=== PATIENT | female | born 1995 | race Caucasian/White ===

== ENCOUNTER 2017-08-03 22:51 | Inpatient (IN) | payer OTHER ==
[2017-08-03] MEDS: morphine 2 MG INJ IV (23:41)
[2017-08-04] MEDS ORDERED: ONDANSETRON 4 MG INJ IV ×3 (00:30→14:30)
[2017-08-04] MEDS: PIPER-TAZO 3.375 GM IV (PMX) 100 ML IVPB ×3 (00:44→18:00)
[2017-08-04] MEDS: DEXTROSE 5%-0.45% NACL 1,000 ML IV ×2 (00:44→10:30)
[2017-08-04 01:06] LABS: ADD MAN DIFF? NO
[2017-08-04 01:15] LABS: WHITE BLOOD COUNT 9.6 10^3/ul (4.8-10.8)
[2017-08-04 01:15] LABS: BASOPHIL # 0.1 10^3/ul (0.0-0.1); BASOPHILS % 0.5 % (0.0-2.0); EOSINOPHILS # 0.3 10^3/ul (0.0-0.5); EOSINOPHILS % 3.5 % (0.0-7.0); HEMATOCRIT 34.2 % (37.0-47.0); HEMOGLOBIN 11.1 g/dl (12.0-16.0); LYMPHOCYTES # 2.6 10^3/ul (0.8-2.9); LYMPHOCYTES % 27.4 % (18.0-55.0); MEAN CORPUSCULAR HEMOGLOBIN 27.8 pg (29.0-33.0); MEAN CORPUSCULAR HGB CONC 32.5 g/dl (32.0-37.0); MEAN CORPUSCULAR VOLUME 85.7 fl (72.0-104.0); MEAN PLATELET VOLUME 11.4 fl (7.4-10.4); MONOCYTE # 0.6 10^3/ul (0.3-0.9); MONOCYTES % 6.2 % (0.0-13.0); NEUTROPHIL # 5.9 10^3/ul (1.6-7.5); NEUTROPHILS % 62.2 % (30.0-74.0); PLATELET COUNT 255 10^3/UL (140-415); RED BLOOD COUNT 3.99 10^6/ul (4.20-5.40); RED CELL DISTRIBUTION WIDTH 14.8 % (11.5-14.5)
[2017-08-04 01:30] LABS: ALANINE AMINOTRANSFERASE 184 IU/L (13-69); ALBUMIN 4.4 g/dl (3.3-4.9); ALBUMIN/GLOBULIN RATIO 1.46; ALKALINE PHOSPHATASE 124 IU/L (42-121); ANION GAP 18 (8-16); ASPARTATE AMINO TRANSFERASE 97 IU/L (15-46); BILIRUBIN,INDIRECT 0.3 mg/dl (0-1.1); BILIRUBIN,TOTAL 0.3 mg/dl (0.2-1.3); BLOOD UREA NITROGEN 13 mg/dl (7-20); CALCIUM 9.3 mg/dl (8.4-10.2); CARBON DIOXIDE 23 mmol/L (21-31); CHLORIDE 104 mmol/L (97-110); CREATININE 0.65 mg/dl (0.44-1.00); GLUCOSE 81 mg/dl (70-220); MAGNESIUM 1.9 mg/dl (1.7-2.5); POTASSIUM 4.4 mmol/L (3.5-5.1); SODIUM 141 mmol/L (135-144); TOTAL PROTEIN 7.4 g/dl (6.1-8.1)
[2017-08-04] MEDS ORDERED: morphine 2 MG INJ IV (13:00)
[2017-08-04] MEDS ORDERED: ACETAMINOPHEN 325 MG TAB PO (13:00)
[2017-08-04] MEDS ORDERED: BUPIVACAINE 0.25% (MPF) 30 ML INJ (13:26)
[2017-08-04] MEDS ORDERED: SUCCINYLCHOLINE CHLORIDE 100 MG/5 ML SYG IV (13:32)
[2017-08-04] MEDS ORDERED: GLYCOPYRROLATE 0.4 MG INJ (13:32)
[2017-08-04] MEDS ORDERED: LIDOCAINE 100 MG SYRINGE (13:32)
[2017-08-04] MEDS ORDERED: PROPOFOL 20 ML (13:32)
[2017-08-04] MEDS ORDERED: NEOSTIGMINE 3 MG/3 ML SYRINGE (13:32)
[2017-08-04] MEDS ORDERED: DEXAMETHASONE 4 MG/ML 1 ML INJ (13:33)
[2017-08-04] MEDS ORDERED: ROCURONIUM 50 MG INJ (13:33)
[2017-08-04] MEDS: BUPIVACAINE 0.25% (MPF) 30 ML INJ INJ (13:43)
[2017-08-04] MEDS: LIDOCAINE 1%/EPI 30 ML INJ INJ (13:43)
[2017-08-04] MEDS ORDERED: FENTAnyl 50 MCG/ML VIAL (14:17)
[2017-08-04] MEDS: FENTAnyl 50 MCG/ML VIAL IV (14:25)
[2017-08-04] MEDS ORDERED: MEPERIDINE 25 MG INJ IV (14:30)
[2017-08-04] MEDS ORDERED: HYDROmorphONE (0.2 MG/ML) 10ML SYG IV ×3 (14:30)
[2017-08-04] MEDS ORDERED: METOCLOPRAMIDE 10 MG INJ IV (14:30)
[2017-08-04] MEDS ORDERED: hydrALAzine 20 MG INJ IV (14:30)
[2017-08-04] MEDS ORDERED: FENTAnyl 50 MCG/ML VIAL IV ×2 (14:30)
[2017-08-04] MEDS ORDERED: EPHEDrine SULFATE 50 MG/5 ML SYG IV (14:30)
[2017-08-04] MEDS ORDERED: KETOROLAC 30 MG INJ IV (14:30)
[2017-08-04] MEDS ORDERED: DIPHENHYDRAMINE 50 MG INJ IV (14:30)
[2017-08-04] MEDS: D5W-0.45 NACL + KCL 20 MEQ 1,000 ML IV ×2 (15:39→22:53)
[2017-08-04] MEDS: KETOROLAC 15 MG INJ IV ×2 (15:40→19:00)
[2017-08-04] MEDS: HYDROCODONE/APAP (5/325) TAB PO (21:57)
[2017-08-05] MEDS: PIPER-TAZO 3.375 GM IV (PMX) 100 ML IVPB ×2 (00:31→06:07)
[2017-08-05] MEDS: KETOROLAC 15 MG INJ IV ×2 (01:00→06:11)
[2017-08-05] MEDS: HYDROCODONE/APAP (5/325) TAB PO (04:07)
[2017-08-05 05:45] LABS: ADD MAN DIFF? NO
[2017-08-05 05:49] LABS: BASOPHILS % 0.1 % (0.0-2.0); HEMATOCRIT 35.8 % (37.0-47.0); HEMOGLOBIN 11.7 g/dl (12.0-16.0); LYMPHOCYTES # 1.3 10^3/ul (0.8-2.9); LYMPHOCYTES % 9.7 % (18.0-55.0); MEAN CORPUSCULAR HEMOGLOBIN 27.8 pg (29.0-33.0); MEAN CORPUSCULAR HGB CONC 32.7 g/dl (32.0-37.0); MEAN PLATELET VOLUME 11.6 fl (7.4-10.4); MONOCYTE # 0.6 10^3/ul (0.3-0.9); MONOCYTES % 4.5 % (0.0-13.0); NEUTROPHIL # 11.1 10^3/ul (1.6-7.5); NEUTROPHILS % 85.3 % (30.0-74.0); PLATELET COUNT 299 10^3/UL (140-415); RED BLOOD COUNT 4.21 10^6/ul (4.20-5.40); RED CELL DISTRIBUTION WIDTH 14.6 % (11.5-14.5)
[2017-08-05] MEDS: ENOXAPARIN 40 MG/0.4 ML SYG SC (06:06)
[2017-08-05 06:08] LABS: ALANINE AMINOTRANSFERASE 193 IU/L (13-69); ALBUMIN 4.4 g/dl (3.3-4.9); ALBUMIN/GLOBULIN RATIO 1.41; ALKALINE PHOSPHATASE 139 IU/L (42-121); ANION GAP 17 (8-16); ASPARTATE AMINO TRANSFERASE 129 IU/L (15-46); BILIRUBIN,INDIRECT 0.2 mg/dl (0-1.1); BILIRUBIN,TOTAL 0.2 mg/dl (0.2-1.3); BLOOD UREA NITROGEN 8 mg/dl (7-20); CALCIUM 9.4 mg/dl (8.4-10.2); CARBON DIOXIDE 24 mmol/L (21-31); CHLORIDE 108 mmol/L (97-110); CREATININE 0.68 mg/dl (0.44-1.00); GLUCOSE 127 mg/dl (70-220); LIPASE 29 U/L (23-300); POTASSIUM 4.4 mmol/L (3.5-5.1); SODIUM 145 mmol/L (135-144); TOTAL PROTEIN 7.5 g/dl (6.1-8.1)
[2017-08-05] MEDS: D5W-0.45 NACL + KCL 20 MEQ 1,000 ML IV (08:53)
[2017-08-07] MEDS ORDERED: INFLUENZA VIRUS VACCINE 0.5 ML (DISPENSING) IM* (09:00)
== END 2017-08-05 11:30 | disposition home or self-care (01) | DRG 419 ==
LOC: MS1 22:51
PROC: 0FT44ZZ Resection of Gallbladder, Percutaneous Endoscopic Approach (ICD-10-PCS; principal; 2017-08-04 12:58)
DX: K80.12 Calculus of gallbladder with acute and chronic cholecystitis without obstruction (principal)
CPT/HCPCS: 78226; 80053; 83690; 83735; 84703; 85025; 88304

== ENCOUNTER 2017-12-28 | Emergency (ER) | payer OTHER ==
[2017-12-28 00:48] LABS: ADD MAN DIFF? NO
[2017-12-28 00:53] LABS: WHITE BLOOD COUNT 9.7 10^3/ul (4.8-10.8)
[2017-12-28 00:53] LABS: BASOPHILS % 0.4 % (0.0-2.0); EOSINOPHILS # 0.4 10^3/ul (0.0-0.5); EOSINOPHILS % 4.1 % (0.0-7.0); HEMATOCRIT 36.1 % (37.0-47.0); HEMOGLOBIN 11.7 g/dl (12.0-16.0); LYMPHOCYTES # 3.5 10^3/ul (0.8-2.9); LYMPHOCYTES % 35.7 % (18.0-55.0); MEAN CORPUSCULAR HEMOGLOBIN 27.3 pg (29.0-33.0); MEAN CORPUSCULAR HGB CONC 32.4 g/dl (32.0-37.0); MEAN CORPUSCULAR VOLUME 84.1 fl (72.0-104.0); MEAN PLATELET VOLUME 11.5 fl (7.4-10.4); MONOCYTE # 0.5 10^3/ul (0.3-0.9); MONOCYTES % 5.2 % (0.0-13.0); NEUTROPHIL # 5.2 10^3/ul (1.6-7.5); NEUTROPHILS % 54.3 % (30.0-74.0); PLATELET COUNT 286 10^3/UL (140-415); RED BLOOD COUNT 4.29 10^6/ul (4.20-5.40); RED CELL DISTRIBUTION WIDTH 14.7 % (11.5-14.5)
[2017-12-28 01:00] LABS: ADD UMIC YES; UR AMORPHOUS CRYSTAL FEW /HPF (NONE SEEN); UR ASCORBIC ACID NEGATIVE (NEGATIVE); UR BACTERIA FEW /HPF (NONE SEEN); UR BILIRUBIN (Dip) NEGATIVE (NEGATIVE); UR BLOOD (Dip) 1+ mg/dL (NEGATIVE); UR CLARITY SLIGHTLY CLOUDY (CLEAR); UR COLOR YELLOW (YELLOW); UR GLUCOSE (Dip) NEGATIVE (NEGATIVE); UR KETONES (Dip) NEGATIVE (NEGATIVE); UR LEUKOCYTE ESTERASE (Dip) 1+ Leu/ul (NEGATIVE); UR NITRITE (Dip) NEGATIVE (NEGATIVE); UR RBC 1 /HPF (0-5); UR SPECIFIC GRAVITY (Dip) 1.012 (1.003-1.030); UR SQUAMOUS EPITHELIAL CELL FEW /HPF (FEW); UR TOTAL PROTEIN (Dip) NEGATIVE (NEGATIVE); UR UROBILINOGEN (Dip) NEGATIVE (NEGATIVE); UR WBC 6 /HPF (0-5)
[2017-12-28 01:11] LABS: ALANINE AMINOTRANSFERASE 35 IU/L (13-69); ALBUMIN 4.1 g/dl (3.3-4.9); ALBUMIN/GLOBULIN RATIO 1.17; ALKALINE PHOSPHATASE 118 IU/L (42-121); ANION GAP 12 (8-16); ASPARTATE AMINO TRANSFERASE 48 IU/L (15-46); BILIRUBIN,INDIRECT 0.3 mg/dl (0-1.1); BILIRUBIN,TOTAL 0.3 mg/dl (0.2-1.3); BLOOD UREA NITROGEN 15 mg/dl (7-20); CALCIUM 9.6 mg/dl (8.4-10.2); CARBON DIOXIDE 27 mmol/L (21-31); CHLORIDE 104 mmol/L (97-110); GLUCOSE 111 mg/dl (70-220); LIPASE 38 U/L (23-300); SODIUM 139 mmol/L (135-144); TOTAL PROTEIN 7.6 g/dl (6.1-8.1)
== END 2017-12-28 02:50 | disposition home or self-care (01) ==
LOC: FTE
DX: K57.32 Diverticulitis of large intestine without perforation or abscess without bleeding (principal); N30.00 Acute cystitis without hematuria
CPT/HCPCS: 36415; 74176; 80053; 81001; 83690; 84703; 85025; 99284-25